=== PATIENT | female | born 1990 | race Caucasian/White ===

== ENCOUNTER 2021-05-15 11:54 | Emergency (ER) | payer OTHER, MEDICAID, SELFPAY ==
[2021-05-15 11:58] VITALS: BP 117/63; PULSE 68; RESP 17; TEMP 37.1; O2SAT 96
--- NOTE | 2021-05-15 12:12 | US_ITS ---
STUDY: FIRST TRIMESTER OBSTETRICAL ULTRASOUND REASON FOR EXAM: Female, 30 years old bleed . Spotting. Miscarriage in January 2021 beta hCG today [id number] LMP: 03/20/2021 TECHNIQUE: Transabdominal and Transvaginal TECHNICAL QUALITY: Adequate. PRIOR ULTRASOUND: None. FINDINGS: There is visualization of a single gestational sac in a normal intrauterine position. The mean sac diameter (MSD) measures 3.1 cm, indicating an estimated gestational age (EGA) of 8 weeks, 3 days. The gestational sac shape is within normal limits. There is a 1.3 x 0.8 x 0.6 cm subchorionic fluid collection. There is a visualized yolk sac. The yolk sac measures 0.5 cm. The placenta is non-visualized. There is visualization of a live embryo. The crown-rump length (CRL) measures 3.10 cm, indicating an estimated gestational age (EGA) of 8 weeks, 3 days. There is demonstrated cardiac activity with a heart rate of 174 bpm. The estimated gestation age (EGA) by LMP is 8 weeks, 3 days. The estimated date of delivery (CORY) by LMP is 12/22/2021. The estimated gestation age (EGA) by US is 8 weeks, 4 days. The estimated date of delivery (CORY) by US is 12/21/2021. The uterus measures 11.3 x 6.8 x 6.7 cm. There is no demonstrated uterine fibroid. The cervix is closed. The right ovary measures 2.9 x 3.8 x 2.0 cm. There is a cyst within the right ovary with an appearance suggestive of a corpus luteal cyst. The left ovary measures 1.9 x 1.7 x 1.3. There is no left ovarian cyst. There is no visualized left adnexal mass or complex lesion. There is trace free fluid. US/Transvaginal w/Preg US IMPRESSION: Single intrauterine with an estimated gestational age by ultrasound of 8 weeks and 4 days and an CORY of 12/21/2021. 1.3 x 0.8 x 0.6 cm subchorionic hemorrhage. Electronically Signed: Cynthia Chicas MD at 14:53 EDT Tel , Service support ,
[2021-05-15 12:45] LABS: Color, Urine Yellow (Yellow); Glucose, Dipstick Normal (Normal); Ketone-Dipstick Negative (Negative); Leukocyte Esterase-Dipstick Negative /ul (Negative); Nitrite-Dipstick Negative (Negative); Occult Blood-Urine Negative /ul (Negative); Protein-Dipstick Negative (Negative); Urine Bilirubin Dipstick Negative (Negative); Urine Clarity Clear (Clear); Urine Urobilinogen Normal (Normal)
[2021-05-15 12:48] LABS: Internal QC Validated? YES +Cl - CLEAR BKGD; Pregnancy, Urine Positive Negative
[2021-05-15 12:51] LABS: Absolute Lymphocyte Count 2.08 X10^3/uL (0.83-4.51); Absolute Neutrophil Count 7.1 X10^3/uL (2.0-7.7); Basophil# 0.03 X10^3/uL; Basophil% 0.3 % (0-1); Eosinophil# 0.05 X10^3/uL; Eosinophils% 0.5 % (0-5); Hematocrit 39.9 % (37-47); Hemoglobin 13.4 g/dL (12.0-15.0); Lymphocyte # 2.08 X10^3/ul (0.83-4.51); Lymphocyte % 20.8 % (19-41); Mean Corp Hgb Conc 33.6 g/dL (32-36); Mean Corpuscular Volume 89.5 fL (81-99); Mean Platelet Vol. 10.5 fl (6.2-12.0); Monocyte# 0.77 X10^3/uL; Monocyte% 7.7 % (0-10); NRBC Flagged by Analyzer 0 % (0-5); Neutrophil # 7.06 X10^3/uL (2.7-7.7); Neutrophil % 70.5 % (47-70); Platelet Count 261 K/mm3 (150-450); RBC Distribution Width CV 12.5 % (11.6-14.6); RBC Distribution Width SD 40.8 fl (35.1-43.9); Red Blood Count 4.46 M/mm3 (4.2-5.4)
--- NOTE | 2021-05-15 13:00 | ED.VIS.FEGU ---
HPI HPI - Female History of Present Illness Chief Complaint: Vag Bld, Preg Narrative Narrative: Patient presents with slight vaginal bleeding. She just found out she is in her first trimester . She is Rh-. She has some slight abdominal cramping. She has no back pain. She has no fever or chills. No dysuria or frequency or urgency. She is G5, P2 PFSH PFSH Medical History (Updated 05/15/21 @ 15:[address] Lenard Fox MD) Collar bone fracture Home Medications [id number] [] 1 tab PO DAILY 05/15/21 [History Last Taken Unknown] Allergy/AdvReac Type Severity Reaction Status Date / Time No Known Allergies Allergy Verified 05/15/21 11:55 Surgical History (Updated 05/15/21 @ 12:09 by Carrie Ren) Hx of tonsillectomy Social History Smoking Status: Current every day smoker tobacco type: cigarettes ROS ROS ED ROS Narrative Past medical history: Reviewed Medications: Reviewed Social history: Noncontributory Review of systems: All systems negative except as indicated General: No fever Eyes: No visual changes ENT: No upper airway congestion, normal voice Neck: No neck pain Cardiovascular: No chest pain Respiratory: No shortness of breath or cough Gastrointestinal: Suprapubic cramping. No nausea vomiting or diarrhea. Genitourinary: No dysuria. Vaginal bleeding as in HPI Musculoskeletal: Denies myalgias no difficulty with ambulation Skin: No rash Neurological: No memory loss, confusion or any focal weakness Psych: No recent behavioral changes Hematologic: No easy bleeding or easy bruising EXAM Physical Exam Narrative Exam Narrative: Physical exam General: Well nourished, Well developed, she appears slightly uncomfortable Head: Normocephalic, Atraumatic Eyes: Conjunctiva not pale ENT: Moist mucous membranes Neck: Supple, Nontender, No lymphadenopathy Cardiovascular: Regular rate, Regular rhythm Respiratory: No distress, CTA bilaterally Abdomen: Soft, mild suprapubic pain : Deferred Back: Nontender, Normal Inspection. Negative for: CVA tenderness Extremities: Nontender, No edema Skin: Normal color, No rash Neurological: Alert, Normal Strength, Normal Sensation Psychological: Normal affect Const Vital Signs: 05/15/21 11:58 Temperature 98.8 F Temperature Source Temporal Pulse Rate 68 Respiratory Rate 17 Blood Pressure 117/63 Blood Pressure Mean 81 Pulse Ox 96 Oxygen Delivery Method Room Air MDM MDM MDM Narrative Medical decision making narrative: Patient had a normal work-up with a live intrauterine . RhoGam was given I will discharge her to follow-up with her OB who is out of town. Lab Data Labs: Laboratory Results - last 24 hr 05/15/21 05/15/21 05/15/21 12:20 12:34 12:34 WBC 10.0 RBC 4.46 Hgb 13.4 Hct 39.9 MCV 89.5 MCH 30.0 MCHC 33.6 RDW Std Deviation 40.8 RDW Coeff of Vik 12.5 Plt Count 261 MPV 10.5 Immature Gran % (Auto) 0.200 Neut % (Auto) 70.5 H Lymph % (Auto) 20.8 [place] % (Auto) 7.7 Eos % (Auto) 0.5 Baso % (Auto) 0.3 Absolute Neuts (auto) 7.1 Absolute Lymphs (auto) 2.08 Nucleated RBC % 0 HCG, Quant Urine Color Yellow Urine Clarity Clear Urine pH 7.0 Ur Specific [place] 1.010 Urine Protein Negative Urine Glucose (UA) Normal Urine Ketones Negative Urine Occult Blood Negative Urine Nitrite Negative Urine Bilirubin Negative Urine Urobilinogen Normal Ur Leukocyte Esterase Negative Urine Test Positive H Blood Type AB NEGATIVE A1 Antigen Typing Rho(D) Type Antibody Screen 05/15/21 05/15/21 12:34 12:34 WBC RBC Hgb Hct MCV MCH MCHC RDW Std Deviation RDW Coeff of Ivk Plt Count MPV Immature Gran % (Auto) Neut % (Auto) Lymph % (Auto) [place] % (Auto) Eos % (Auto) Baso % (Auto) Absolute Neuts (auto) Absolute Lymphs (auto) Nucleated RBC % HCG, Quant 14018 H Urine Color Urine Clarity Urine pH Ur Specific [place] Urine Protein Urine Glucose (UA) Urine Ketones Urine Occult Blood Urine Nitrite Urine Bilirubin Urine Urobilinogen Ur Leukocyte Esterase Urine Test Blood Type Cancelled A1 Antigen Typing Cancelled Rho(D) Type Cancelled Antibody Screen Cancelled Radiography Diagnostic Testing: Radiology Impression Obstetrics Ultrasound 05/15/21 12:12 IMPRESSION: Single intrauterine with an estimated gestational age by ultrasound of 8 weeks and 4 days and an CORY of 12/21/2021. 1.3 x 0.8 x 0.6 cm subchorionic hemorrhage. Electronically Signed: Cynthia Chicas MD at 14:53 EDT Tel , Service support , Discharge Plan Triage Chief Complaint: Vag Bld, Preg ED Provider: Lenard Fox Dx/Rx/DC Orders Clinical Impression: Threatened miscarriage Instructions: ED Possible Miscarriage ... Prescriptions: No Action 1 mg Tablet 1 tab PO DAILY RF: 0 Primary Care Provider: Care Physician,No Primary Referrals: Care Physician,No Primary [Primary Care Provider] - Activity Restrictions/Additional Instructions: Follow-up with your MEDICINE WORKER in [place] as scheduled. Disposition Disposition: Home, Self Care
[2021-05-15 15:33] VITALS: BP 118/62; PULSE 59; RESP 16; O2SAT 99
== END 2021-05-15 15:33 | disposition home or self-care (01) ==
PROVIDERS: Emergency Provider Emergency Medicine
DX: O20.0 Threatened abortion (principal); O99.331 Smoking (tobacco) complicating pregnancy, first trimester; F17.210 Nicotine dependence, cigarettes, uncomplicated; Z3A.00 Weeks of gestation of pregnancy not specified
CPT/HCPCS: 76817; 81002; 81025; 84702; 85025; 86900; 86901; 90384; 96372; 99283; J2790